=== PATIENT | female | born 1980 | race Caucasian/White ===

== ENCOUNTER 2021-01-20 17:19 | Emergency (ER) | payer OTHER, SELFPAY ==
[2021-01-20 17:26] VITALS: BP 132/83; PULSE 118; RESP 18; TEMP 36.5; O2SAT 98; BMI 23.3
--- NOTE | 2021-01-20 17:38 | DI.RAD.S_ITS ---
PROCEDURE: XR LUMBAR SPINE 2-3V INDICATIONS: pop in her lower back TECHNIQUE: 3 views of the lumbar spine were acquired. COMPARISON: None. FINDINGS: Bones: 5 [id number] vertebrae are present. There is mild straightening of normal lumbar lordosis. No acute vertebral body compression fractures. No suspicious bony lesions. Mild multilevel degenerative changes of the mid and lower lumbar spine. Findings are most pronounced at L4-5 and L5-S1. Soft tissues: Overlying bowel gas pattern is normal. No suspicious soft tissue calcifications. Surgical clips in right upper quadrant compatible with prior cholecystectomy. IMPRESSION: 1. Lumbar spine without acute fracture or dislocation. 2. Multilevel lumbar spondylosis most pronounced at L4-5 and L5-S1. Dictated by: Abel Kyle M.D. on 01/20/2021 at 18:55 Approved by: Abel Kyle M.D. on 01/20/2021 at 18:56
[2021-01-20] MEDS: predniSONE 20 MG TABLET 40 MG PO (18:41)
[2021-01-20] MEDS: KETOROLAC 30 MG/ML VIAL IM (18:41)
[2021-01-20] MEDS: HYDROCODONE/ACET 5/325 TABLET 1 TAB PO (18:42)
--- NOTE | 2021-01-20 18:45 | ED_ITS ---
HPI - Back Pain/Injury General Chief Complaint: Back Pain/Injury Stated Complaint: heard a pop in lower back, pain, tingling Time Seen by Provider: 01/20/21 18:18 Source: patient Limitations: no limitations History of Present Illness HPI Narrative: 40-year-old female nonsmoker with noncontributory medical history presents with a chief complaint of a low back pain that has been present over the course the day since an injury this morning. She states that she was lifting some heavy objects and while bending over and using her right leg to try to move other objects she felt a pop in her back and a sudden sharp, stabbing and burning pain radiating bilaterally from her lumbar region into her buttocks. She also has some numbness and tingling in each leg running laterally but not in her saddle region. She has increased pain with range of motion and improvement with rest. She denies any weakness of her extremities. She denies any loss of control of bowel or bladder. She has no fever or chills and denies atraumatic or direct impact to her lumbar spine Related Data Home Medications Medication Instructions Recorded Confirmed hydrocodone 10 mg-acetaminophen #0 07/17/17 325 mg tablet Previous Rx's Medication Instructions Recorded cyclobenzaprine 10 mg tablet 10 mg PO TID PRN #14 tab 01/20/21 gabapentin 300 mg capsule 300 mg PO BEDTIME #14 cap 01/20/21 hydrocodone 5 mg-acetaminophen 325 1 tab PO Q4-6H PRN #10 tab 01/20/21 mg tablet ketorolac 10 mg tablet 10 mg PO Q6H PRN #14 tab 01/20/21 prednisone 10 mg tablet See Rx Instructions .ROUTE 01/20/21 .COMPLEX #30 tab Allergies Allergy/AdvReac Type Severity Reaction Status Date / Time ondansetron Allergy Severe I'M Verified 01/20/21 17:26 [From LUCAS ( UNABLE TO HYDROCHLORIDE)] BREATH tramadol [TRAMADOL] Allergy Unknown Verified 01/20/21 17:26 latex AdvReac Mild ITCHING Verified 01/20/21 17:30 Review of Systems Review of Systems Narrative: GENERAL: Denies chills, fatigue, malaise, fever, sweats. HEENT: Denies sinus pain, ear pain, sore throat, difficulty swallowing, dizziness. RESPIRATORY: Denies dyspnea, cough, wheezing, hemoptysis, sputum. CARDIOVASCULAR: Denies chest pain, palpitations, orthopnea, edema, GASTROINTESTINAL: Denies nausea, vomiting, abdominal pain, diarrhea, constipation, melena. : Denies dysuria, frequency, incontinence, hematuria, urinary retention. MUSCULOSKELETAL: See HPI SKIN: Denies rash, skin lesions, or other NEUROLOGIC: Denies weakness, headache, numbness, change in speech, confusion, seizures, incoordination. PSYCHIATRIC: No concerning psychosocial issues. 12 point review of systems is negative except for those stated above Patient History Social History Smoking Status: Current every day smoker Smoking Status: Current every day smoker alcohol intake frequency: a few times a month Substance Use Type: does not use Exam Narrative Exam Narrative: GENERAL: [40] year old patient appears stated age. Well- developed patient, in moderate distress, obviously uncomfortable, walking with antalgic gait, no drop foot HEAD: Atraumatic. Normocephalic. EYES: Pupils equal round and reactive. Extraocular motions intact. No scleral icterus. No injection or drainage. ENT: Nose without bleeding, purulent drainage. Throat without erythema, t onsillar hypertrophy or exudate. Airway patent. NECK: Trachea midline. Non tender CARDIOVASCULAR: Regular rate and rhythm without murmurs, gallops, or rubs. RESPIRATORY: Clear to auscultation. Breath sounds equal bilaterally. No wheezes, rales, or rhonchi. GASTROINTESTINAL: Abdomen soft, non-tender, nondistended. EXTREMITIES: No edema or joint tenderness. BACK: tenter frame back tender but free of any obvious external abnormalities. Patient exam notes decreased range of motion and muscle spasm, but no CVA tenderness, or vertebral point tenderness. There are no symptoms of cauda equina such as saddle anesthesia, and decreased reflexes, decreased sensation or strength. NEURO: AOx3. SKIN: No rash or erythema of visible areas Initial Vital Signs Initial Vital Signs: Vital Signs Temperature 97.7 F 01/20/21 17:26 Pulse Rate 118 H 01/20/21 17:26 Respiratory Rate 18 01/20/21 17:26 Blood Pressure 132/83 01/20/21 17:26 Pulse Oximetry 98 01/20/21 17:26 Course Orders Ordered: Discontinued Medications Hydrocodone Bitart/Acetaminophen (Hydrocodone/Acet 5/325 Tablet) 1 tab PO NOW ONE Stop: 01/20/21 18:36 Last Admin: 01/20/21 18:42 Dose: 1 tab Documented by: DEANA Ketorolac Tromethamine (Ketorolac 30 Mg/Ml Vial) 30 mg IM NOW ONE Stop: 01/20/21 18:36 Last Admin: 01/20/21 18:41 Dose: 30 mg Documented by: DEANA Prednisone (Prednisone 20 Mg Tablet) 40 mg PO NOW ONE Stop: 01/20/21 18:36 Last Admin: 01/20/21 18:41 Dose: 40 mg Documented by: DEANA Reevaluation(s) Reevaluation #1: Patient feeling significant improvement above-stated therapies Vital Signs Vital signs: Vital Signs - 8 hr 01/20/21 17:26 Temperature 97.7 F Pulse Rate 118 H Respiratory Rate 18 Blood Pressure 132/83 Pulse Oximetry 98 MDM - Back Pain/Injury Imaging Data Lumbar Xray: Radiologist's Impression: [address] [id number] ReportSigned Patient: Mari Roman LMR#: [id number]: [id number]:[id number]/Sex: 40 / FDate of Service: 01/20/21Loc: EDAccession Number: [id number] Procedure: XR lumbar spine 2-3V Ordering Provider: Odessa Ibarra D.O. PROCEDURE: XR LUMBAR SPINE 2-3V INDICATIONS: pop in her lower back TECHNIQUE: 3 views of the lumbar spine were acquired. COMPARISON: None. FINDINGS: Bones: 5 [id number] vertebrae are present. There is mild straightening of normal lumbar lordosis. No acute vertebral body compression fractures. No suspicious bony lesions. Mild multilevel degenerative changes of the mid and lower lumbar spine. Findings are most pronounced at L4-5 and L5-S1. Soft tissues: Overlying bowel gas pattern is normal. No suspicious soft tissue calcifications. Surgical clips in right upper quadrant compatible with prior cholecystectomy. IMPRESSION: 1. Lumbar spine without acute fracture or dislocation. 2. Multilevel lumbar spondylosis most pronounced at L4-5 and L5-S1. Dictated by: Abel Kyle M.D. on 01/20/2021 at 18:55 Approved by: Abel Kyle M.D. on 01/20/2021 at 18:56 MDM Narrative Medical decision making narrative: [Multiple etiologies of back pain considered including; Epidural abscess, cauda equina, mass occupying lesion, and other considered] Patient's symptoms improved over duration of stay with above-stated therapies. Findings and discharge diagnosis discussed with patient/family followed by verbalization of understanding Return precautions discussed with patient/family whom verbalize understanding. Discharge Plan Departure Patient Disposition: Home Clinical Impression: Bilateral lumbar radiculopathy Instructions: DI for Low Back Pain Activity Restrictions/Additional Instructions: *You have been diagnosed with [ lumbar pain with radiculopathy] *What to do: *Please continue to take your regular medications as directed. [x ] New medication prescriptions sent to your pharmacy: [[facility] in [place] ] [ ] New medication written as a paper prescription [ ] No new medications given *Please follow up with your primary care provider in 2-3 days, call for an appointment. Let them know you were seen in the Emergency Department and that we ask that you be seen in follow up. We will electronically transmit a record of today's note if your PCP is in our system *If you do not have a primary care provider please contact the [facility] Resource line at [phone]. They will ask some questions about your medical history and help get you set up with a doctor in the community. *Return to Emergency Department if you should have any new, worsening or concerning symptoms, such as [fever greater than 101 F, shaking chills, worsening pain, persistent vomiting or other bothersome symptoms] Prescriptions: New cyclobenzaprine 10 mg tablet 10 mg PO TID PRN (Reason: muscle spasm) Qty: 14 RF: 0 prednisone 10 mg tablet See Rx Instructions .ROUTE .COMPLEX Qty: 30 RF: 0 hydrocodone-acetaminophen 5-325 mg tablet 1 tab PO Q4-6H PRN (Reason: pain) Qty: 10 RF: 0 ketorolac 10 mg tablet 10 mg PO Q6H PRN (Reason: pain) Qty: 14 RF: 0 gabapentin 300 mg capsule 300 mg PO BEDTIME Qty: 14 RF: 0 No Action hydrocodone-acetaminophen 10 MG/325 MG tablet Qty: 0 RF: 0 Referrals: Otto Rodriguez ARNP [Primary Care Provider] -
[2021-01-20 19:05] VITALS: PULSE 70; RESP 14; O2SAT 99
--- NOTE | 2021-01-20 20:18 | PC.NURSE ---
Denies difficulty (withholding / incontinence) of bowel / bladder, ambulatory w/pain. c/o numbness in saddle area. + CSM distally w/o difficulty. Denies fever, chills
== END 2021-01-20 20:58 | disposition home or self-care (01) ==
PROVIDERS: Emergency Provider Emergency Medicine; PCP Registered Nurse Diabetes Educator
DX: M54.16 Radiculopathy, lumbar region (principal)
CPT/HCPCS: 72100; 96372; 99283; 99284; J1885

== ENCOUNTER → 2021-02-12 19:05 | Outpatient (CLI) | payer OTHER, SELFPAY ==
--- NOTE | 2021-02-12 | DI.MRI.S_ITS ---
PROCEDURE: MR LUMBAR SPINE WO CON INDICATIONS: sciatica, unspecified side TECHNIQUE: Noncontrast sagittal T1 spin echo and T2 fast echo, sagittal STIR, axial T1 and T2 fast spin echo through the lumbar spine. In cases with scoliosis, additional coronal T2 fast spin echo may be performed. COMPARISON: [facility], CR, XR LUMBAR SPINE 2-3V, 01/20/2021, 17:42. FINDINGS: Image quality: Excellent. Alignment and Curvature: There is normal bony alignment. Bone Marrow: Linear low T1/T2 signal intensity traverses the superior L5 endplate. There is moderate surrounding ill-defined T2 signal elevation. There is mild wedging of L5. Spinal Cord: Conus medullaris terminates at the lower L2 level. Visualized cord demonstrates normal signal and size. Paraspinous Soft Tissues: No paravertebral masses. T12-L1: Normal appearance. L1-L2: Normal appearance. L2-L3: Mild facet hypertrophy bilaterally. No significant canal, or foraminal stenosis. L3-L4: Mild facet and ligamentum flavum hypertrophy. Mild epidural lipomatosis. Mild canal stenosis. No foraminal stenosis. L4-L5: Mild diffuse disc bulge. Mild bilateral facet hypertrophy. Mild canal stenosis. Mild bilateral foraminal stenosis. L5-S1: Mild disc height loss and desiccation. Mild diffuse disc bulge. Mild facet and ligamentum flavum hypertrophy. Mild canal stenosis. No foraminal stenosis. IMPRESSION: 1. Mild subacute L5 compression fracture. 2. Multilevel degenerative disc and facet disease, as well as ligamentum flavum hypertrophy and epidural lipomatosis. 3. Mild multilevel canal and foraminal stenoses. No neural impingement. Dictated by: Obed Sánchez M.D. on 02/13/2021 at 9:24 Approved by: Obed Sánchez M.D. on 02/13/2021 at 9:55
== END ==
PROVIDERS: Referring Provider Student in an Organized Health Care Education/Training Program; Visit Provider Student in an Organized Health Care Education/Training Program
DX: S39.012A Strain of muscle, fascia and tendon of lower back, initial encounter (principal); S32.059A Unspecified fracture of fifth lumbar vertebra, initial encounter for closed fracture; M54.30 Sciatica, unspecified side; M51.36 Other intervertebral disc degeneration, lumbar region; M48.061 Spinal stenosis, lumbar region without neurogenic claudication; E88.2 Lipomatosis, not elsewhere classified; X58.XXXA Exposure to other specified factors, initial encounter
CPT/HCPCS: 72148

== ENCOUNTER → 2023-03-04 16:36 | Outpatient (CLI) | payer OTHER, SELFPAY ==
--- NOTE | 2023-03-04 16:38 | DI.US.S_ITS ---
PROCEDURE: US ABDOMEN LIMITED INDICATIONS: SUBCUTANEOUS MASS ON LEFT LOWER ABDOMEN TECHNIQUE: Real-time focused scanning was performed of the abdomen, with image documentation. COMPARISON: None. FINDINGS: At the site of clinical concern, there is a subcutaneous nodule that measures 0.9 x 0.4 x 2.9 cm. No abnormal vascularity can be seen. IMPRESSION: Nonvascular subcutaneous nodule seen at the site of clinical concern. The appearance is nonspecific. In this patient with a prior history of melanoma, please consider ultrasound-guided biopsy for further evaluation. Dictated by: Hakeem Lazaro M.D. on 03/05/2023 at 9:12 Approved by: Hakeem Lazaro M.D. on 03/05/2023 at 9:13
== END ==
PROVIDERS: Referring Provider Dermatology; Visit Provider Dermatology
DX: R19.04 Left lower quadrant abdominal swelling, mass and lump (principal); Z85.820 Personal history of malignant melanoma of skin; Z80.8 Family history of malignant neoplasm of other organs or systems; R59.0 Localized enlarged lymph nodes
CPT/HCPCS: 76705

== ENCOUNTER → 2023-04-14 08:33 | Outpatient (CLI) | payer OTHER, SELFPAY ==
--- NOTE | 2023-04-14 | PATH_ITS ---
[facility] Accession Number: [id number] No. of containers..01 Tissue . 01 Material submitted: . abdomen - PALPABLE SUPERFICIAL LEFT LOWER ABDOMINAL MASS . 01 Diagnosis: Palpable Superficial Left Lower Abdominal Mass, Biopsies: Small fragments of mature adipose tissue with focal fat necrosis, consistent with lipoma. Negative for significant atypia and malignancy. MRV 04/19/2023 1601 Local . 01 Comment: The histologic findings are consistent with a benign lipoma. However, clinical and radiologic correlation is recommended to ensure that the mass has been adequately sampled and the histologic features are financial sales representative of the lesion as a whole. . As part of ongoing quality control supervisor, this case is also reviewed by Dr. Sienna Velarde, who agrees with the interpretation. . 01 Electronically signed: . Denise Wyatt MD, Pathologist NPI- [id number] . 01 Gross description: . The specimen is received in formalin labeled with the patient's name, , and palpable left lower ABD quad mass, consists of multiple pale romero soft tissue fragments aggregating to 0.8 x 0.5 x 0.1 cm. Filtered and submitted entirely in cassette A1. ([id number]) /MRV 04/15/2023 1239 Local . 01 Pathologist provided ICD-10: D17.9 . 01 CPT . 809240 Performed at: 01 [facility] [address] [place] [address] [address], [place], [place] [id number] MD Ovidio Jones MD Phone: [phone]
--- NOTE | 2023-04-14 | DI.US.S_ITS ---
PROCEDURE: US BIOPSY ABD OR RETROPERIT Ultrasound-guided core biopsy with subcutaneous nodule. INDICATIONS: PALPABLE SUPERFICIAL LEFT LOWER ABDOMEN MASS BIOPSY TECHNIQUE: The indications, alternatives, benefits, risks, and complications of the procedure were explained to the patient. Written informed consent was obtained and placed in the chart. Continuous EKG and hemodynamic monitoring was started by trained personnel. Real-time sonography was utilized to choose the site for percutaneous subcutaneous nodule in the left lower anterior abdominal biopsy. The skin was prepped and draped in the usual sterile fashion. 1% lidocaine was infiltrated down to the site of interest. A coaxial needle was then advanced into the site of interest under direct sonographic visualization. A biopsy apparatus was then utilized, and core biopsies were obtained. The needle was then withdrawn; a bandage was applied to the biopsy site. COMPARISON: None. FINDINGS: Biopsy site(s): Left lower anterior abdominal subcutaneous mass. Needle: Vouch biopsy needle set. Number of passes: 8 passes (3 with 20 g, 5 with 18 g) Medications: 1% lidocaine for local anaesthesia. IMPRESSION: Successful ultrasound-guided percutaneous biopsy of a subcutaneous nodule, with pathology results pending. Dictated by: Rusty Massey M.D. on 04/14/2023 at 11:22 Approved by: Rusty Massey M.D. on 04/14/2023 at 11:33
== END ==
PROVIDERS: Referring Provider Dermatology; Visit Provider Dermatology
DX: R59.0 Localized enlarged lymph nodes (principal)
CPT/HCPCS: 49180; 76942